=== PATIENT | female | born 1935 | race Caucasian/White ===

== ENCOUNTER 2023-04-07 11:59 | Emergency (ER) | payer OTHER, SELFPAY ==
[2023-04-07] VITALS (12 sets, daily range): BP systolic 111–154; BP diastolic 52–83; PULSE 48–68; RESP 16–22; TEMP 35.3; O2SAT 93–98; BMI 30.9
--- NOTE | 2023-04-07 12:42 | ED.GENADULT ---
HPI - General Adult General Time Seen by Provider: 12:42 Date Seen: 04/07/23 Chief complaint: Chest Pain Stated complaint: Shortness of breath Time Seen by Provider: 04/07/23 12:41 Source: patient, family and RN notes reviewed Mode of arrival: ambulatory Limitations: no limitations History of Present Illness HPI narrative: This 87-year-old female is coming in with primary complaint of shortness of breath. She admits that there was some shortness of breath but yesterday it seemed to worsen and had an episode where was significantly worse today. She thought it worsened acutely around 10 30 this morning, family that is present think it was closer to 10:00 a.m.. It is somewhat better now. She still has some interscapular back pain. There is no GI symptoms with this. She at the worst, had pain into the left arm and shoulder area. There was chest pain with it as well. Right now she is just feeling a little interscapular back pain, some residual shortness of breath. She traveled from [facility] via plane 9 days ago to visit her granddaughter, is scheduled to go back today. Denies any underlying prior cardiac or pulmonary history. Did have a stroke this past year and is on Eliquis. 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 Related Data Home Medications Medication Instructions Recorded Confirmed apixaban 5 mg tablet (Eliquis) 5 mg PO BID 04/07/23 04/07/23 diltiazem HCl 180 mg capsule,24 180 mg PO DAILY 04/07/23 04/07/23 hr,extended release losartan 50 mg tablet 50 mg PO DAILY 04/07/23 04/07/23 Allergies Allergy/AdvReac Type Severity Reaction Status Date / Time prednisone Allergy Severe nausea Verified 04/07/23 12:26 Review of Systems Status of ROS: Reports: 6 or more systems reviewed and unremarkable except as noted in History and below [facility] Social History Smoking Status: Never smoker Do you use any of these nicotine containing products: None Non-prescribed substance use: denies use Exam Const: Vital Signs, click to edit/add: Vital Signs - 24 hr 04/07/23 12:28 04/07/23 12:40 04/07/23 12:48 Temperature 95.6 F L Pulse Rate [Pulse Oximeter] 57 L 53 L Respiratory Rate 16 22 Blood Pressure [Ri ght Upper Arm] 143/83 H 130/69 Pulse Oximetry 93 95 98 Oxygen Delivery Me thod Room Air Room Air 04/07/23 13:00 04/07/23 13:20 04/07/23 13:40 Temperature Pulse Rate [Pulse Oximeter] 57 L 50 L 48 L Respiratory Rate 20 18 20 Blood Pressure [Ri ght Upper Arm] 128/59 L 135/61 119/56 L Pulse Oximetry 97 96 97 Oxygen Delivery Me thod Room Air Room Air Room Air 04/07/23 14:00 04/07/23 14:20 Temperature Pulse Rate [Pulse Oximeter] 49 L 48 L Respiratory Rate 20 20 Blood Pressure [Ri ght Upper Arm] 128/59 L 127/57 L Pulse Oximetry 97 97 Oxygen Delivery Me thod Room Air Room Air Camelia is an 87-year-old female that is alert, interactive, no apparent distress. Symmetrical facial function, sclera clear, pupils equal round. Speech is normal. Neck is supple, no cervical adenopathy, no masses noted. She can sit up, lungs are clear, good air entry, no wheezing or crackles. CV regular rate and rhythm, soft systolic murmur, 1 to 2/6 heard actually throughout the precordium. Abdomen is soft, nontender, nondistended, no organomegaly. She has no lower extremity edema. She was ambulatory into the ED of her own accord. Documenting provider has reviewed patient's vital signs: yes Course Course ED Course: With patient on Eliquis, much less likely to be any thromboembolic disease. Will consider cardiac etiology, respiratory including but not limited to congestive heart failure infectious etiology. Will get a full complement of labs, start with a portable chest x-ray. She will have a troponin, EKG, be monitored on cardiac monitoring and pulse oximetry. She understands we may undertake other testing such as advanced imaging if needed. Will also be doing the triple viral swab. Reevaluation(s) Time of Reevaluation #1: 14:52 Reevaluation #1: Patient did report to nursing that she has been having dark stools. Reviewed that her hemoglobin is excellent at 12.5. Did do a digital rectal exam, patient has good rectal tone and did somewhat have difficulty relaxing in attempt to do digital rectal exam. Got a little bit of brownish stool, did collect that off my gloved finger to send for stool Hemoccult. We will see if it is enough to test. Time of Reevaluation #2: 15:50 Reevaluation #2: Reviewed with patient that we have not found any reason for the etiology of her symptoms. We are finding no evidence of any acute GI bleeding on her testing, her hemoglobin is stable. She will be discharged to home for further outpatient follow-up. Prior to my seeing her, did see her ambulate to the bathroom. She states she had no significant problem doing so. Vital Signs Vital signs: Initial Vital Signs Temperature 95.6 F L 04/07/23 12:28 Temperature Source Temporal Artery Scan 04/07/23 12:28 Pulse Rate 57 L 04/07/23 12:28 Pulse Rhythm Regular 04/07/23 12:28 Pulse Strength 3+ Normal 04/07/23 12:28 Respiratory Rate 16 04/07/23 12:28 Blood Pressure 143/83 H 04/07/23 12:28 Blood Pressure Mean 103 04/07/23 12:28 Blood Pressure Position Sitting 04/07/23 12:28 Pulse Oximetry 93 04/07/23 12:28 Oxygen Delivery Method Room Air 04/07/23 12:28 Vital Signs Temperature 95.6 F L 04/07/23 12:28 Pulse Rate 57 L 04/07/23 12:28 Respiratory Rate 16 04/07/23 12:28 Blood Pressure 143/83 H 04/07/23 12:28 Pulse Oximetry 93 04/07/23 12:28 Oxygen Delivery Method Room Air 04/07/23 12:28 Temperature 95.6 F L 04/07/23 12:28 Pulse Rate 48 L 04/07/23 14:20 Respiratory Rate 20 04/07/23 14:20 Blood Pressure 127/57 L 04/07/23 14:20 Pulse Oximetry 97 04/07/23 14:20 Oxygen Delivery Method Room Air 04/07/23 14:20 Medical Decision Making Lab Data Lab results reviewed: Yes I reviewed the patient's lab results Labs: Lab Results 04/07/23 04/07/23 04/07/23 Range/Units 12:44 12:49 14:35 WBC 6.33 (4.50-11.00) K/uL RBC 3.80 L (4.00-5.20) m/uL Hgb 12.5 (12.0-16.0) gm/dL Hct 39.2 (33.0-51.0) % MCV 103 H (80-100) fL MCH 33 (26-34) pg MCHC 32 (32-36) gm/dL RDW Coeff of Abbey 13.1 (11.5-15.5) % Plt Count 205 (140-440) K/uL Neut % (Auto) 71.4 (42.0-72.0) % Lymph % (Auto) 13.4 L (20-44) % Dent % (Auto) 12.5 H (0.0-11.0) % Eos % (Auto) 2.1 (0.0-7.0) % Baso % (Auto) 0.3 (0.0-3.0) % Neut # (Auto) 4.52 (1.7-7.0) K/uL Lymph # (Auto) 0.80 L (0.90-2.90) K/uL Dent # (Auto) 0.80 (0.00-0.90) K/UL Eos # (Auto) 0.13 (0.00-0.50) K/uL Baso # (Auto) 0.02 (0.00-0.30) K/uL Abs Immat Gran (auto) 0.02 (0.00-0.30) K/uL Imm/Tot Granulo (auto) 0.3 % D-Dimer Quant (PE/DVT) 0.32 (0.00-0.50) ug/ml VBG pH 7.360 (7.32-7.43) VBG pCO2 45 (40-50) mmHG VBG pO2 50.9 H (25-47) mmHG VBG HCO3 25 (21-28) mmol/L Sodium 136 (135-149) mmol/L Potassium 3.8 (3.6-5.1) mmol/L Chloride 104 (96-114) mmol/L Carbon Dioxide 22 (20-32) mmol/L Anion Gap 10 (7-15) mEq/L BUN 27 (7-30) mg/dL Creatinine 1.0 (0.5-1.5) mg/dL Estimated Creat Clear 35.52 Estimated GFR 55 ml/min Glucose 96 (60-115) mg/dL Calcium 9.4 (8.4-10.6) mg/dL Total Bilirubin 0.6 (0.1-1.5) mg/dL AST 65 H (12-35) U/L ALT 28 (4-35) U/L Alkaline Phosphatase 81 (40-150) U/L C-Reactive Protein 1.2 H (0.5-1.0) mg/dL NT-Pro-B Natriuret Pep 168 pg/mL Total Protein 6.6 (6.0-8.3) g/dL Albumin 4.1 (3.3-5.0) g/dL Stool Occult Blood (Negative) SARS-CoV-2 (PCR) Negative SARS-CoV-2 (Negative) Influenza Type A (PCR) Negative PCR FLU A (Negative) Influenza Type B (PCR) Negative PCR FLU B (Negative) RSV (PCR) Negative PCR RSV (Negative) POC Troponin I 0.01 0.01 (0.01-0.04) ng/ml 04/07/23 Range/Units 14:53 WBC (4.50-11.00) K/uL RBC (4.00-5.20) m/uL Hgb (12.0-16.0) gm/dL Hct (33.0-51.0) % MCV (80-100) fL MCH (26-34) pg MCHC (32-36) gm/dL RDW Coeff of Abbey (11.5-15.5) % Plt Count (140-440) K/uL Neut % (Auto) (42.0-72.0) % Lymph % (Auto) (20-44) % Dent % (Auto) (0.0-11.0) % Eos % (Auto) (0.0-7.0) % Baso % (Auto) (0.0-3.0) % Neut # (Auto) (1.7-7.0) K/uL Lymph # (Auto) (0.90-2.90) K/uL Dent # (Auto) (0.00-0.90) K/UL Eos # (Auto) (0.00-0.50) K/uL Baso # (Auto) (0.00-0.30) K/uL Abs Immat Gran (auto) (0.00-0.30) K/uL Imm/Tot Granulo (auto) % D-Dimer Quant (PE/DVT) (0.00-0.50) ug/ml VBG pH (7.32-7.43) VBG pCO2 (40-50) mmHG VBG pO2 (25-47) mmHG VBG HCO3 (21-28) mmol/L Sodium (135-149) mmol/L Potassium (3.6-5.1) mmol/L Chloride (96-114) mmol/L Carbon Dioxide (20-32) mmol/L Anion Gap (7-15) mEq/L BUN (7-30) mg/dL Creatinine (0.5-1.5) mg/dL Estimated Creat Clear Estimated GFR ml/min Glucose (60-115) mg/dL Calcium (8.4-10.6) mg/dL Total Bilirubin (0.1-1.5) mg/dL AST (12-35) U/L ALT (4-35) U/L Alkaline Phosphatase (40-150) U/L C-Reactive Protein (0.5-1.0) mg/dL NT-Pro-B Natriuret Pep pg/mL Total Protein (6.0-8.3) g/dL Albumin (3.3-5.0) g/dL Stool Occult Blood Negative (Negative) SARS-CoV-2 (PCR) (Negative) Influenza Type A (PCR) (Negative) Influenza Type B (PCR) (Negative) RSV (PCR) (Negative) POC Troponin I (0.01-0.04) ng/ml Imaging Data Chest x-ray: Attestation: I have reviewed the pertinent imaging results. Radiologist's impression: Patient: CAMELIA BLACKMON Facility:?[facility] Patient ID:?[id number] Site Patient ID:?[id number]. Site :?[id number] Study:?XRay Chest 1 VIEW PORTABLE-04/07/2023 1:15:27 PM Ordering Physician:Victorino Mckinney Final Report: Indication: Shortness of breath and chest pain Technique: Chest 1 view Comparison: None Findings/Impression: Cardiovascular and mediastinum: Normal heart size with aortic tortuosity. Lungs and pleural space: Lungs are clear. No sign of infiltrate or mass. No sign of pleural effusion. No pneumothorax. Bones and soft tissues: Bilateral glenohumeral osteoarthritis. Dictated by Wyatt Alas MD @ 04/07/2023 2:20:58 PM (Electronic Signature) Discharge Plan Discharge Clinical Impression: Shortness of breath, Chest pain Patient Disposition: Home, Self-Care Condition: Stable Instructions: Chest Pain (ED), Shortness of Breath (ED) Additional Instructions: Do recommend that you follow-up as soon as possible, certainly within the next week. Would recommend that consideration for further testing including echo, cardiac stress testing, possible pulmonary testing if needed. In the meantime, if you have any worsening of your symptoms, develop new or concerning changes, do recommend re-evaluation. Activity Level: Activity as Tolerated Prescriptions: No Action Eliquis 5 mg tablet 5 mg PO BID losartan 50 mg tablet 50 mg PO DAILY diltiazem HCl 180 mg capsule,extended release 24 hr 180 mg PO DAILY Follow Up/Referrals: Provider,Not a Local [Primary Care Provider] - Stand Alone Forms: Causes Info Instructions
--- NOTE | 2023-04-07 12:48 | CRLHL7_ITS ---
For Patients: As a result of the Century Cures Act, medical imaging exams and procedure reports are released immediately into your electronic medical record. You may view this report before your referring provider. If you have questions, please contact your health care provider. Indication: Shortness of breath and chest pain Technique: Chest 1 view Comparison: None Findings/Impression: Cardiovascular and mediastinum: Normal heart size with aortic tortuosity. Lungs and pleural space: Lungs are clear. No sign of infiltrate or mass. No sign of pleural effusion. No pneumothorax. Bones and soft tissues: Bilateral glenohumeral osteoarthritis. Dictated by Wyatt Alas MD @ 04/07/2023 2:20:58 PM (Electronically Signed)
[2023-04-07 13:04] LABS: Troponin, Point-of-Care* 0.01 ng/ml (0.01-0.04)
[2023-04-07 13:06] LABS: HCO3 VBG 25 mmol/L (21-28); PCO2 VBG 45 mmHG (40-50); PO2 VBG 50.9 mmHG (25-47)
[2023-04-07 13:09] LABS: Basophils Absolute Auto 0.02 K/uL (0.00-0.30); Basophils Percent Auto 0.3 % (0.0-3.0); Eosinophils Absolute Auto 0.13 K/uL (0.00-0.50); Eosinophils Percent Auto 2.1 % (0.0-7.0); Hematocrit 39.2 % (33.0-51.0); Hemoglobin* 12.5 gm/dL (12.0-16.0); Immature Granulocytes Abs Auto 0.02 K/uL (0.00-0.30); Immature Granulocytes Pct Auto 0.3 %; Lymphocytes Percent Auto 13.4 % (20-44); Mean Corpuscular HGB Conc 32 gm/dL (32-36); Mean Corpuscular Hemoglobin 33 pg (26-34); Mean Corpuscular Volume 103 fL (80-100); Monocytes Percent Auto 12.5 % (0.0-11.0); Neutrophils Absolute Auto 4.52 K/uL (1.7-7.0); Neutrophils Percent Auto 71.4 % (42.0-72.0); Platelet Count* 205 K/uL (140-440); RDW Coefficient of Variation % 13.1 % (11.5-15.5); White Blood Count* 6.33 K/uL (4.50-11.00)
[2023-04-07 13:12] LABS: Slide Review Reflex No
[2023-04-07 13:32] LABS: Albumin* 4.1 g/dL (3.3-5.0); Chloride* 104 mmol/L (96-114); Sodium* 136 mmol/L (135-149)
[2023-04-07 13:33] LABS: Potassium* 3.8 mmol/L (3.6-5.1)
[2023-04-07 13:35] LABS: Alkaline Phosphatase* 81 U/L (40-150); Anion Gap 10 mEq/L (7-15); Aspartate Amino Transferase* 65 U/L (12-35); Bilirubin Total* 0.6 mg/dL (0.1-1.5); Carbon Dioxide* 22 mmol/L (20-32); Est. Creatinine Clearance* 35.52; Estimated Glomerular Filt Rate 55 ml/min; Total Protein* 6.6 g/dL (6.0-8.3)
[2023-04-07 13:36] LABS: Alanine Aminotransferase* 28 U/L (4-35); Blood Urea Nitrogen* 27 mg/dL (7-30); Calcium* 9.4 mg/dL (8.4-10.6); D Dimer Quantitative* 0.32 ug/ml (0.00-0.50); Glucose* 96 mg/dL (60-115)
[2023-04-07 13:38] LABS: C Reactive Protein* 1.2 mg/dL (0.5-1.0)
[2023-04-07 13:47] LABS: PCR FLU A Negative PCR FLU A (Negative); PCR FLU B Negative PCR FLU B (Negative); PCR RSV Negative PCR RSV (Negative); SARS PCR* Negative SARS-CoV-2 (Negative)
[2023-04-07 14:20] LABS: NT Pro B Type NatriureticPept* 168 pg/mL
--- NOTE | 2023-04-07 14:27 | ED.NURSE ---
patient is feeling better and rates at 2-3/10 scale. with back and chest pain. reported having dark stools and updated Dr. Ruelas on this. family is at the bedside.
[2023-04-07 14:50] LABS: Troponin, Point-of-Care* 0.01 ng/ml (0.01-0.04)
--- NOTE | 2023-04-07 14:52 | ED.NURSE ---
Dr. Ruelas did a rectal check and collected a hemoccult. sent to lab gibran Salinas
[2023-04-07 15:10] LABS: Fecal Occult Blood* Negative (Negative)
== END 2023-04-07 16:28 | disposition home or self-care (01) ==
PROVIDERS: Emergency Provider Family Medicine
DX: R07.9 Chest pain, unspecified (principal); R06.02 Shortness of breath
CPT/HCPCS: 36415; 71045; 80053; 82270; 82803; 83880; 84484; 85025; 85379; 86140; 87631; 93005; 94761; 99284; 99285